=== PATIENT | female | born 1980 | race Caucasian/White ===

== ENCOUNTER 2017-04-07 14:07 | Emergency (ER) | payer OTHER ==
[2017-04-07 15:41] LABS: HEMOGLOBIN 11.9 gm/dl (12.3-15.3); RED BLOOD COUNT 4.08 M/UL (4.00-5.10); WHITE BLOOD COUNT 8.1 K/UL (4.5-11.0)
[2017-04-07 16:00] LABS: BUN/CREATININE RATIO 17 (0-10)
== END 2017-04-07 18:20 | disposition home or self-care (01) ==
LOC: ER1 14:07
PROVIDERS: Family Medicine
DX: R42 Dizziness and giddiness (principal); R73.9 Hyperglycemia, unspecified; E07.9 Disorder of thyroid, unspecified; F17.200 Nicotine dependence, unspecified, uncomplicated; Z88.2 Allergy status to sulfonamides; Z79.899 Other long term (current) drug therapy
CPT/HCPCS: 36415; 70450; 80053; 84443; 85025; 96361; 96374; 99284; J2405

== ENCOUNTER → 2022-03-23 | Outpatient (CLI) | payer BC ==
[~2022-03-23] MED LIST: ASPIRIN CHEWABL81 MG PO; BENTYL 20MG TAB20 MG PO; CORTISPORIN OTI10 M1 EARBOTH; LODINE CAP 300300 MG PO; NITROSTAT0.4 MG SL; SYNTHROID150 MCG PO; ZOFRAN ODT 4 MG4 MG PO
== END ==
LOC: KOH-I 08:00
DX: K76.0 Fatty (change of) liver, not elsewhere classified (principal)
CPT/HCPCS: 76700

== ENCOUNTER 2022-06-01 00:48 | Emergency (ER) | payer BC ==
[2022-06-01] MEDS ORDERED: IBUPROFEN600 MG PO (02:52)
[2022-06-01] MEDS ORDERED: CLEOCIN HCL150 MG PO (02:52)
== END 2022-06-01 03:18 | disposition home or self-care (01) ==
LOC: ER1 00:48
DX: G89.18 Other acute postprocedural pain (principal); R68.84 Jaw pain; I10 Essential (primary) hypertension; E03.9 Hypothyroidism, unspecified; Z95.1 Presence of aortocoronary bypass graft; Z88.2 Allergy status to sulfonamides; Z88.8 Allergy status to other drugs, medicaments and biological substances
CPT/HCPCS: 99283